=== PATIENT | female | born 1935 | race African-American/Black ===

== ENCOUNTER → 2017-05-28 | Outpatient (CLI) | payer MEDICARE, MEDICAID ==
[~2017-05-28] MED LIST: CRESTOR; LANTUS; NITROSTAT; OXYBUTYNIN; PREG50CA PO; SITA1TAB8 PO; novalog
== END | disposition home or self-care (01) ==
LOC: RAD 09:06
PROVIDERS: ATTEND Ophthalmology
DX: M17.0 Bilateral primary osteoarthritis of knee (principal)
CPT/HCPCS: 73562

== ENCOUNTER 2021-11-17 18:40 | Inpatient (IN) | payer MEDICARE, MEDICAID ==
[~2021-11-17] VITALS: Ht 162.6 cm; Wt 73.0 kg
[~2021-11-17 18:40] MED LIST changes: +ATOR20TA MT; -CRESTOR; +GABA-532 MT; +HYDR-4134 MT; +LATA7.5D OP; +MEMA10TA2 MT; +NIFE90TA60 MT; -NITROSTAT; -OXYBUTYNIN; -PREG50CA PO; -SITA1TAB8 PO; -novalog
[2021-11-17 20:00] VITALS: BP 177/80
[2021-11-17] MEDS ORDERED: DEXTROSE 50% WATER 50ML SYRINGE IV PRN (20:45)
[2021-11-17] MEDS ORDERED: ONDANSETRON HCL 4MG TABLET PO PRN (20:45)
[2021-11-17] MEDS ORDERED: LACTULOSE 20G/30ML UDC PO PRN (20:45)
[2021-11-17] MEDS: INSULIN LISPRO 100 UNITS/ML SUBCUT SCH (21:00)
[2021-11-17] MEDS: BLOOD SUGAR DIAGNOSTIC STRIP TEST SCH (21:43)
[2021-11-17] MEDS: MEMANTINE HCL 10MG TABLET PO SCH (21:43)
[2021-11-17] MEDS: ENOXAPARIN 80MG/0.8ML SYR SUBCUT SCH (22:01)
[2021-11-18 05:27] LABS: CLARITY URINE CLEAR (CLEAR); COLOR URINE YELLOW (YELLOW); KETONES URINE TRACE (NEGATIVE); LEUKOCYTE ESTERASE URINE NEGATIVE (NEGATIVE); NITRITE URINE NEGATIVE (NEGATIVE); OCCULT BLOOD URINE 2+ (NEGATIVE); PH URINE 6.5 (4.5-8.0); PROTEIN URINE TRACE (NEGATIVE); SPECIFIC GRAVITY URINE 1.015 (1.005-1.030)
[2021-11-18] MEDS: BLOOD SUGAR DIAGNOSTIC STRIP TEST SCH ×4 (06:38→21:31)
[2021-11-18 06:58] LABS: BASOPHILS % 0.5 % (0.0-2.0); EOSINOPHILS % 2.6 % (0.0-5.0); HEMATOCRIT. 41.2 % (36.0-48.0); HEMOGLOBIN. 12.8 g/dL (12.0-16.0); LYMPHOCYTES % 14.6 % (20.0-50.0); MEAN CORPUSCULAR HEMOGLOBIN 25.6 pg (28.0-32.0); MEAN CORPUSCULAR VOLUME 82.3 fL (81.0-99.0); MEAN PLATELET VOLUME 8.5 fl (7.4-10.4); MONOCYTES % 8.7 % (2.0-8.0); NEUTROPHILS % 73.6 % (40.0-76.0); PLATELET 266 x1000/uL (130-400); RED BLOOD CELL COUNT 5.01 mill/uL (4.2-5.4); RED CELL DISTRIBUTION WIDTH 17.1 % (11.6-14.6)
[2021-11-18 07:10] LABS: CHLORIDE 106 mEq/L (98-107)
[2021-11-18 08:00] VITALS: BP 203/85
[2021-11-18] MEDS: INSULIN LISPRO 100 UNITS/ML SUBCUT SCH ×4 (08:12→21:00)
[2021-11-18] MEDS: POLYETHYLENE GLYCOL 3350 (17GM) 1 DOSE PACK PO SCH (08:24)
[2021-11-18] MEDS: MEMANTINE HCL 10MG TABLET PO SCH ×2 (08:25→21:08)
[2021-11-18] MEDS: AMLODIPINE 10MG TABLET PO SCH (08:25)
[2021-11-18] MEDS: HYDROCODONE/ACETAMINOPHEN 5/325MG TABLET PO PRN (08:28)
[2021-11-18] MEDS: ENOXAPARIN 80MG/0.8ML SYR SUBCUT SCH ×2 (08:32→21:08)
[2021-11-18] MEDS ORDERED: NALOXONE HCL 0.4MG/ML VIAL IV PRN (12:45)
[2021-11-18] MEDS: ASPIRIN 81MG TABLET PO SCH (13:02)
[2021-11-18 20:00] VITALS: BP 165/69
[2021-11-18] MEDS: HYDRALAZINE HCL 25MG TABLET PO SCH (21:08)
[2021-11-18 22:20] VITALS: BP 146/63
[2021-11-19] MEDS: BLOOD SUGAR DIAGNOSTIC STRIP TEST SCH ×4 (06:08→20:48)
[2021-11-19] MEDS: INSULIN LISPRO 100 UNITS/ML SUBCUT SCH ×4 (06:32→20:52)
[2021-11-19 08:00] VITALS: BP 156/66
[2021-11-19 08:27] LABS: BASOPHILS % 0.4 % (0.0-2.0); EOSINOPHILS % 3.6 % (0.0-5.0); HEMATOCRIT. 38.3 % (36.0-48.0); HEMOGLOBIN. 12.5 g/dL (12.0-16.0); LYMPHOCYTES % 20.3 % (20.0-50.0); MEAN CORPUSCULAR HEMOGLOBIN 26.4 pg (28.0-32.0); MEAN CORPUSCULAR VOLUME 81.1 fL (81.0-99.0); MEAN PLATELET VOLUME 8.5 fl (7.4-10.4); MONOCYTES % 9.5 % (2.0-8.0); NEUTROPHILS % 66.2 % (40.0-76.0); PLATELET 283 x1000/uL (130-400); RED BLOOD CELL COUNT 4.72 mill/uL (4.2-5.4); RED CELL DISTRIBUTION WIDTH 17.4 % (11.6-14.6)
[2021-11-19 08:41] LABS: CHLORIDE 107 mEq/L (98-107)
[2021-11-19] MEDS: ASPIRIN 81MG TABLET PO SCH (09:46)
[2021-11-19] MEDS: HYDRALAZINE HCL 25MG TABLET PO SCH ×2 (09:46→20:44)
[2021-11-19] MEDS: MEMANTINE HCL 10MG TABLET PO SCH ×2 (09:46→20:44)
[2021-11-19] MEDS: POLYETHYLENE GLYCOL 3350 (17GM) 1 DOSE PACK PO SCH (09:46)
[2021-11-19] MEDS: AMLODIPINE 10MG TABLET PO SCH (09:47)
[2021-11-19] MEDS: ENOXAPARIN 80MG/0.8ML SYR SUBCUT SCH ×2 (09:48→20:44)
[2021-11-19 20:00] VITALS: BP 123/58
[2021-11-20] MEDS: BLOOD SUGAR DIAGNOSTIC STRIP TEST SCH ×4 (06:08→21:00)
[2021-11-20] MEDS: INSULIN LISPRO 100 UNITS/ML SUBCUT SCH ×4 (07:56→22:09)
[2021-11-20 08:00] VITALS: BP 160/73
[2021-11-20] MEDS: HYDRALAZINE HCL 25MG TABLET PO SCH ×2 (11:07→21:13)
[2021-11-20] MEDS: ASPIRIN 81MG TABLET PO SCH (11:07)
[2021-11-20] MEDS: POLYETHYLENE GLYCOL 3350 (17GM) 1 DOSE PACK PO SCH (11:08)
[2021-11-20] MEDS: AMLODIPINE 10MG TABLET PO SCH (11:08)
[2021-11-20] MEDS: MEMANTINE HCL 10MG TABLET PO SCH ×2 (11:08→21:12)
[2021-11-20] MEDS: ENOXAPARIN 80MG/0.8ML SYR SUBCUT SCH ×2 (11:09→21:12)
[2021-11-20] MEDS: HYDROCODONE/ACETAMINOPHEN 5/325MG TABLET PO PRN (12:10)
[2021-11-20 20:00] VITALS: BP 169/76
[2021-11-21] MEDS: BLOOD SUGAR DIAGNOSTIC STRIP TEST SCH ×4 (06:40→21:00)
[2021-11-21] MEDS: INSULIN LISPRO 100 UNITS/ML SUBCUT SCH ×4 (07:09→23:30)
[2021-11-21 08:00] VITALS: BP 178/78
[2021-11-21] MEDS: HYDROCODONE/ACETAMINOPHEN 5/325MG TABLET PO PRN ×2 (08:23→15:01)
[2021-11-21] MEDS: POLYETHYLENE GLYCOL 3350 (17GM) 1 DOSE PACK PO SCH (10:40)
[2021-11-21] MEDS: MEMANTINE HCL 10MG TABLET PO SCH ×2 (10:40→23:17)
[2021-11-21] MEDS: ASPIRIN 81MG TABLET PO SCH (10:40)
[2021-11-21] MEDS: HYDRALAZINE HCL 25MG TABLET PO SCH ×2 (10:40→23:17)
[2021-11-21] MEDS: ENOXAPARIN 80MG/0.8ML SYR SUBCUT SCH ×2 (10:41→23:19)
[2021-11-21] MEDS: AMLODIPINE 10MG TABLET PO SCH (10:41)
[2021-11-21 20:00] VITALS: BP 114/59
[2021-11-21] MEDS: ACETAMINOPHEN 325MG TABLET PO PRN (23:16)
[2021-11-22] MEDS: BLOOD SUGAR DIAGNOSTIC STRIP TEST SCH ×4 (06:56→21:16)
[2021-11-22 08:00] VITALS: BP 109/76
[2021-11-22] MEDS: INSULIN LISPRO 100 UNITS/ML SUBCUT SCH ×4 (09:00→21:43)
[2021-11-22] MEDS: MEMANTINE HCL 10MG TABLET PO SCH ×2 (09:00→21:16)
[2021-11-22] MEDS: HYDRALAZINE HCL 25MG TABLET PO SCH ×2 (09:00→21:15)
[2021-11-22] MEDS: AMLODIPINE 10MG TABLET PO SCH (09:00)
[2021-11-22] MEDS: ASPIRIN 81MG TABLET PO SCH (10:53)
[2021-11-22] MEDS: POLYETHYLENE GLYCOL 3350 (17GM) 1 DOSE PACK PO SCH (10:53)
[2021-11-22] MEDS: ENOXAPARIN 80MG/0.8ML SYR SUBCUT SCH ×2 (10:54→21:16)
[2021-11-22] MEDS: HYDROCODONE/ACETAMINOPHEN 5/325MG TABLET PO PRN (10:56)
[2021-11-22 20:00] VITALS: BP 155/53
[2021-11-23] MEDS: BLOOD SUGAR DIAGNOSTIC STRIP TEST SCH ×4 (05:21→20:39)
[2021-11-23] MEDS: HYDRALAZINE HCL 25MG TABLET PO SCH ×3 (05:21→20:38)
[2021-11-23 06:31] LABS: BASOPHILS % 0.6 % (0.0-2.0); EOSINOPHILS % 3.2 % (0.0-5.0); HEMATOCRIT. 35.8 % (36.0-48.0); HEMOGLOBIN. 11.2 g/dL (12.0-16.0); LYMPHOCYTES % 23.4 % (20.0-50.0); MEAN CORPUSCULAR HEMOGLOBIN 25.7 pg (28.0-32.0); MEAN PLATELET VOLUME 8.4 fl (7.4-10.4); MONOCYTES % 10.7 % (2.0-8.0); NEUTROPHILS % 62.1 % (40.0-76.0); PLATELET 317 x1000/uL (130-400); RED BLOOD CELL COUNT 4.37 mill/uL (4.2-5.4); RED CELL DISTRIBUTION WIDTH 18.3 % (11.6-14.6)
[2021-11-23 07:07] LABS: CHLORIDE 105 mEq/L (98-107)
[2021-11-23 08:00] VITALS: BP 162/69
[2021-11-23] MEDS: INSULIN LISPRO 100 UNITS/ML SUBCUT SCH ×4 (09:00→20:39)
[2021-11-23] MEDS: POLYETHYLENE GLYCOL 3350 (17GM) 1 DOSE PACK PO SCH (09:00)
[2021-11-23] MEDS: MEMANTINE HCL 10MG TABLET PO SCH ×2 (09:24→20:37)
[2021-11-23] MEDS: ASPIRIN 81MG TABLET PO SCH (09:24)
[2021-11-23] MEDS: ENOXAPARIN 80MG/0.8ML SYR SUBCUT SCH ×2 (09:24→20:37)
[2021-11-23] MEDS: AMLODIPINE 2.5MG TABLET PO SCH (09:25)
[2021-11-23] MEDS: ACETAMINOPHEN 325MG TABLET PO PRN (09:25)
[2021-11-23] MEDS: TRAMADOL 50MG TABLET PO PRN (13:03)
[2021-11-23 20:00] VITALS: BP 143/59
[2021-11-24] MEDS: HYDRALAZINE HCL 25MG TABLET PO SCH ×3 (05:48→22:03)
[2021-11-24] MEDS: BLOOD SUGAR DIAGNOSTIC STRIP TEST SCH ×4 (05:48→21:00)
[2021-11-24] MEDS: TRAMADOL 50MG TABLET PO PRN ×2 (06:27→09:25)
[2021-11-24 08:00] VITALS: BP 144/77
[2021-11-24] MEDS ORDERED: HYDROCODONE/ACETAMINOPHEN 5/325MG TABLET PO SCH (08:45)
[2021-11-24] MEDS: INSULIN LISPRO 100 UNITS/ML SUBCUT SCH ×4 (08:56→21:00)
[2021-11-24] MEDS: POLYETHYLENE GLYCOL 3350 (17GM) 1 DOSE PACK PO SCH (09:00)
[2021-11-24] MEDS: ENOXAPARIN 80MG/0.8ML SYR SUBCUT SCH ×2 (09:23→22:03)
[2021-11-24] MEDS: ASPIRIN 81MG TABLET PO SCH (09:23)
[2021-11-24] MEDS: MEMANTINE HCL 10MG TABLET PO SCH ×2 (09:24→22:03)
[2021-11-24] MEDS: AMLODIPINE 2.5MG TABLET PO SCH (09:24)
[2021-11-24 20:00] VITALS: BP 152/56
[2021-11-24 20:04] VITALS: BP 152/56
[2021-11-24] MEDS: HYDROCODONE/ACETAMINOPHEN 5/325MG TABLET PO PRN (22:04)
[2021-11-25 04:07] LABS: 25-HYDROXY VITAMIN D3 36 ng/mL (.)
[2021-11-25] MEDS: HYDRALAZINE HCL 25MG TABLET PO SCH ×3 (05:51→20:58)
[2021-11-25] MEDS: HYDROCODONE/ACETAMINOPHEN 5/325MG TABLET PO PRN (05:52)
[2021-11-25] MEDS: BLOOD SUGAR DIAGNOSTIC STRIP TEST SCH ×4 (06:26→20:59)
[2021-11-25 08:00] VITALS: BP 159/50
[2021-11-25] MEDS: INSULIN LISPRO 100 UNITS/ML SUBCUT SCH ×4 (08:13→21:00)
[2021-11-25] MEDS: ASPIRIN 81MG TABLET PO SCH (10:24)
[2021-11-25] MEDS: AMLODIPINE 2.5MG TABLET PO SCH (10:25)
[2021-11-25] MEDS: ERGOCALCIFEROL 50000UNITS CAPSULE PO SCH (10:25)
[2021-11-25] MEDS: MEMANTINE HCL 10MG TABLET PO SCH ×2 (10:25→20:58)
[2021-11-25] MEDS: POLYETHYLENE GLYCOL 3350 (17GM) 1 DOSE PACK PO SCH (10:25)
[2021-11-25] MEDS: ENOXAPARIN 80MG/0.8ML SYR SUBCUT SCH ×2 (10:25→20:59)
[2021-11-25 20:00] VITALS: BP 169/70
[2021-11-26 04:00] VITALS: BP 153/62
[2021-11-26] MEDS: BLOOD SUGAR DIAGNOSTIC STRIP TEST SCH ×4 (05:12→20:56)
[2021-11-26] MEDS: HYDRALAZINE HCL 25MG TABLET PO SCH ×3 (05:12→20:55)
[2021-11-26 08:00] VITALS: BP 150/65
[2021-11-26] MEDS: LACTULOSE 20G/30ML UDC PO SCH ×3 (09:00→18:08)
[2021-11-26] MEDS: INSULIN LISPRO 100 UNITS/ML SUBCUT SCH ×4 (09:00→20:50)
[2021-11-26] MEDS: MEMANTINE HCL 10MG TABLET PO SCH ×2 (09:01→20:55)
[2021-11-26] MEDS: ASPIRIN 81MG TABLET PO SCH (09:01)
[2021-11-26] MEDS: AMLODIPINE 2.5MG TABLET PO SCH (09:02)
[2021-11-26] MEDS: POLYETHYLENE GLYCOL 3350 (17GM) 1 DOSE PACK PO SCH (09:02)
[2021-11-26] MEDS: ENOXAPARIN 80MG/0.8ML SYR SUBCUT SCH ×2 (09:15→20:55)
[2021-11-26 14:30] VITALS: BP 122/65
[2021-11-26 20:00] VITALS: BP 172/62
[2021-11-27] VITALS: BP 154/80
[2021-11-27] MEDS: HYDRALAZINE HCL 25MG TABLET PO SCH ×3 (05:09→20:41)
[2021-11-27] MEDS: BLOOD SUGAR DIAGNOSTIC STRIP TEST SCH ×4 (05:17→20:48)
[2021-11-27] MEDS: HYDROCODONE/ACETAMINOPHEN 5/325MG TABLET PO PRN ×2 (06:11→23:08)
[2021-11-27 08:00] VITALS: BP 131/53
[2021-11-27] MEDS: POLYETHYLENE GLYCOL 3350 (17GM) 1 DOSE PACK PO SCH (08:49)
[2021-11-27] MEDS: ENOXAPARIN 80MG/0.8ML SYR SUBCUT SCH ×2 (08:49→20:42)
[2021-11-27] MEDS: AMLODIPINE 2.5MG TABLET PO SCH ×2 (08:50→17:40)
[2021-11-27] MEDS: MEMANTINE HCL 10MG TABLET PO SCH ×2 (08:50→20:42)
[2021-11-27] MEDS: ASPIRIN 81MG TABLET PO SCH (08:50)
[2021-11-27] MEDS: INSULIN LISPRO 100 UNITS/ML SUBCUT SCH ×4 (09:00→20:47)
[2021-11-27 11:22] LABS: BASOPHILS % 0.8 % (0.0-2.0); HEMATOCRIT. 38.8 % (36.0-48.0); HEMOGLOBIN. 12.2 g/dL (12.0-16.0); LYMPHOCYTES % 13.7 % (20.0-50.0); MEAN CORPUSCULAR HEMOGLOBIN 25.6 pg (28.0-32.0); MEAN CORPUSCULAR VOLUME 81.7 fL (81.0-99.0); MEAN PLATELET VOLUME 7.7 fl (7.4-10.4); NEUTROPHILS % 73.5 % (40.0-76.0); PLATELET 397 x1000/uL (130-400); RED BLOOD CELL COUNT 4.75 mill/uL (4.2-5.4); RED CELL DISTRIBUTION WIDTH 17.9 % (11.6-14.6)
[2021-11-27 11:31] LABS: CHLORIDE 106 mEq/L (98-107)
[2021-11-27] MEDS ORDERED: POTASSIUM CHLORIDE 20MEQ/PACKET PO SCH (13:30)
[2021-11-27 20:00] VITALS: BP 168/63
[2021-11-27 22:00] VITALS: BP 158/70
[2021-11-28] MEDS: HYDRALAZINE HCL 25MG TABLET PO SCH ×3 (05:17→22:05)
[2021-11-28] MEDS: BLOOD SUGAR DIAGNOSTIC STRIP TEST SCH ×4 (05:21→20:43)
[2021-11-28] MEDS: INSULIN LISPRO 100 UNITS/ML SUBCUT SCH ×4 (05:22→20:43)
[2021-11-28] MEDS: HYDROCODONE/ACETAMINOPHEN 5/325MG TABLET PO PRN ×2 (07:01→15:03)
[2021-11-28 08:00] VITALS: BP 151/69
[2021-11-28] MEDS: POLYETHYLENE GLYCOL 3350 (17GM) 1 DOSE PACK PO SCH (08:56)
[2021-11-28] MEDS: ASPIRIN 81MG TABLET PO SCH (08:57)
[2021-11-28] MEDS: ENOXAPARIN 80MG/0.8ML SYR SUBCUT SCH ×2 (08:57→20:38)
[2021-11-28] MEDS: AMLODIPINE 2.5MG TABLET PO SCH ×2 (08:57→16:46)
[2021-11-28] MEDS: MEMANTINE HCL 10MG TABLET PO SCH ×2 (08:57→20:38)
[2021-11-28] MEDS ORDERED: NALOXONE HCL 0.4MG/ML VIAL IV PRN (16:00)
[2021-11-28 19:59] VITALS: BP 143/58
[2021-11-29] MEDS: HYDRALAZINE HCL 25MG TABLET PO SCH ×3 (05:13→20:57)
[2021-11-29] MEDS: BLOOD SUGAR DIAGNOSTIC STRIP TEST SCH ×4 (06:03→21:18)
[2021-11-29] MEDS: INSULIN LISPRO 100 UNITS/ML SUBCUT SCH ×4 (06:14→21:17)
[2021-11-29 07:29] LABS: BASOPHILS % 0.8 % (0.0-2.0); EOSINOPHILS % 3.9 % (0.0-5.0); HEMATOCRIT. 37.8 % (36.0-48.0); HEMOGLOBIN. 11.7 g/dL (12.0-16.0); LYMPHOCYTES % 19.7 % (20.0-50.0); MEAN CORPUSCULAR HEMOGLOBIN 25.6 pg (28.0-32.0); MEAN CORPUSCULAR VOLUME 82.9 fL (81.0-99.0); MEAN PLATELET VOLUME 8.1 fl (7.4-10.4); MONOCYTES % 7.9 % (2.0-8.0); NEUTROPHILS % 67.7 % (40.0-76.0); PLATELET 332 x1000/uL (130-400); RED BLOOD CELL COUNT 4.56 mill/uL (4.2-5.4); RED CELL DISTRIBUTION WIDTH 17.7 % (11.6-14.6)
[2021-11-29 07:34] LABS: CHLORIDE 109 mEq/L (98-107)
[2021-11-29 08:00] VITALS: BP 158/75
[2021-11-29] MEDS: ASPIRIN 81MG TABLET PO SCH (08:26)
[2021-11-29] MEDS: MEMANTINE HCL 10MG TABLET PO SCH ×2 (08:26→20:58)
[2021-11-29] MEDS: POLYETHYLENE GLYCOL 3350 (17GM) 1 DOSE PACK PO SCH (08:26)
[2021-11-29] MEDS: HYDROCODONE/ACETAMINOPHEN 5/325MG TABLET PO PRN (08:27)
[2021-11-29] MEDS: ENOXAPARIN 80MG/0.8ML SYR SUBCUT SCH ×2 (08:28→20:58)
[2021-11-29] MEDS: AMLODIPINE 2.5MG TABLET PO SCH ×2 (08:29→18:03)
[2021-11-29] MEDS ORDERED: POTASSIUM CHLORIDE 20MEQ TABLET SR PO SCH (08:45)
[2021-11-29] MEDS ORDERED: NALOXONE HCL 0.4MG/ML VIAL IV PRN (19:45)
[2021-11-29 20:00] VITALS: BP 147/57
[2021-11-30] MEDS: HYDRALAZINE HCL 25MG TABLET PO SCH ×3 (05:49→21:06)
[2021-11-30 06:40] LABS: BASOPHILS % 0.7 % (0.0-2.0); EOSINOPHILS % 2.7 % (0.0-5.0); HEMATOCRIT. 39.8 % (36.0-48.0); HEMOGLOBIN. 12.6 g/dL (12.0-16.0); LYMPHOCYTES % 22.5 % (20.0-50.0); MEAN CORPUSCULAR HEMOGLOBIN 25.8 pg (28.0-32.0); MEAN CORPUSCULAR VOLUME 81.4 fL (81.0-99.0); MEAN PLATELET VOLUME 8.1 fl (7.4-10.4); MONOCYTES % 9.1 % (2.0-8.0); PLATELET 354 x1000/uL (130-400); RED BLOOD CELL COUNT 4.89 mill/uL (4.2-5.4); RED CELL DISTRIBUTION WIDTH 18.3 % (11.6-14.6)
[2021-11-30 07:03] LABS: CHLORIDE 109 mEq/L (98-107)
[2021-11-30] MEDS: BLOOD SUGAR DIAGNOSTIC STRIP TEST SCH ×4 (07:03→21:06)
[2021-11-30] MEDS: HYDROCODONE/ACETAMINOPHEN 5/325MG TABLET PO PRN ×2 (07:03→13:05)
[2021-11-30] MEDS: INSULIN LISPRO 100 UNITS/ML SUBCUT SCH ×4 (07:04→21:15)
[2021-11-30] MEDS: POLYETHYLENE GLYCOL 3350 (17GM) 1 DOSE PACK PO SCH (09:32)
[2021-11-30] MEDS: ASPIRIN 81MG TABLET PO SCH (09:32)
[2021-11-30] MEDS: MEMANTINE HCL 10MG TABLET PO SCH ×2 (09:33→21:06)
[2021-11-30] MEDS: AMLODIPINE 2.5MG TABLET PO SCH ×2 (09:34→17:27)
[2021-11-30] MEDS: ENOXAPARIN 80MG/0.8ML SYR SUBCUT SCH ×2 (09:36→21:07)
[2021-11-30 20:00] VITALS: BP 139/46
[2021-12-01] MEDS: SODIUM HYPOCHLORITE 0.125% 473ML SOLUTION TOP PRN (02:12)
[2021-12-01] MEDS: HYDRALAZINE HCL 25MG TABLET PO SCH ×3 (05:53→21:10)
[2021-12-01] MEDS: HYDROCODONE/ACETAMINOPHEN 5/325MG TABLET PO PRN ×2 (05:54→13:32)
[2021-12-01] MEDS: BLOOD SUGAR DIAGNOSTIC STRIP TEST SCH ×4 (05:58→21:10)
[2021-12-01] MEDS: INSULIN LISPRO 100 UNITS/ML SUBCUT SCH ×4 (05:59→21:00)
[2021-12-01 08:00] VITALS: BP 140/52
[2021-12-01] MEDS: AMLODIPINE 2.5MG TABLET PO SCH ×2 (09:42→17:12)
[2021-12-01] MEDS: MEMANTINE HCL 10MG TABLET PO SCH ×2 (09:42→21:10)
[2021-12-01] MEDS: ASPIRIN 81MG TABLET PO SCH (09:42)
[2021-12-01] MEDS: POLYETHYLENE GLYCOL 3350 (17GM) 1 DOSE PACK PO SCH (09:42)
[2021-12-01] MEDS: ENOXAPARIN 80MG/0.8ML SYR SUBCUT SCH ×2 (09:43→21:11)
[2021-12-01 20:00] VITALS: BP 122/72
[2021-12-02] MEDS: BLOOD SUGAR DIAGNOSTIC STRIP TEST SCH ×2 (05:38→11:18)
[2021-12-02] MEDS: HYDRALAZINE HCL 25MG TABLET PO SCH ×3 (05:39→20:42)
[2021-12-02] MEDS: INSULIN LISPRO 100 UNITS/ML SUBCUT SCH (05:39)
[2021-12-02] MEDS: HYDROCODONE/ACETAMINOPHEN 5/325MG TABLET PO PRN ×2 (05:40→13:57)
[2021-12-02 08:00] VITALS: BP 142/58
[2021-12-02] MEDS: ASPIRIN 81MG TABLET PO SCH (08:32)
[2021-12-02] MEDS: APIXABAN 5 MG TABLET PO SCH ×2 (08:32→18:13)
[2021-12-02] MEDS: ERGOCALCIFEROL 50000UNITS CAPSULE PO SCH (08:33)
[2021-12-02] MEDS: AMLODIPINE 2.5MG TABLET PO SCH ×2 (08:33→18:13)
[2021-12-02] MEDS: MEMANTINE HCL 10MG TABLET PO SCH ×2 (08:33→20:42)
[2021-12-02] MEDS: POLYETHYLENE GLYCOL 3350 (17GM) 1 DOSE PACK PO SCH (08:41)
[2021-12-02 09:10] LABS: BASOPHILS % 0.7 % (0.0-2.0); EOSINOPHILS % 3.1 % (0.0-5.0); HEMOGLOBIN. 11.3 g/dL (12.0-16.0); LYMPHOCYTES % 26.8 % (20.0-50.0); MEAN CORPUSCULAR HEMOGLOBIN 25.7 pg (28.0-32.0); MEAN CORPUSCULAR VOLUME 82.2 fL (81.0-99.0); MEAN PLATELET VOLUME 8.2 fl (7.4-10.4); MONOCYTES % 7.7 % (2.0-8.0); NEUTROPHILS % 61.7 % (40.0-76.0); PLATELET 343 x1000/uL (130-400); RED BLOOD CELL COUNT 4.37 mill/uL (4.2-5.4); RED CELL DISTRIBUTION WIDTH 17.8 % (11.6-14.6)
[2021-12-02 09:20] LABS: CHLORIDE 111 mEq/L (98-107)
[2021-12-02 20:00] VITALS: BP 164/60
[2021-12-02 22:00] VITALS: BP 157/70
[2021-12-03] MEDS: HYDRALAZINE HCL 25MG TABLET PO SCH ×3 (05:53→22:33)
[2021-12-03] MEDS: HYDROCODONE/ACETAMINOPHEN 5/325MG TABLET PO PRN ×2 (05:54→22:33)
[2021-12-03] MEDS: SODIUM HYPOCHLORITE 0.125% 473ML SOLUTION TOP PRN (05:57)
[2021-12-03 06:49] VITALS: BP 152/50
[2021-12-03 08:00] VITALS: BP 145/54
[2021-12-03] MEDS: POLYETHYLENE GLYCOL 3350 (17GM) 1 DOSE PACK PO SCH (08:51)
[2021-12-03] MEDS: ASPIRIN 81MG TABLET PO SCH (08:51)
[2021-12-03] MEDS: MEMANTINE HCL 10MG TABLET PO SCH ×2 (08:51→22:32)
[2021-12-03] MEDS: APIXABAN 5 MG TABLET PO SCH ×2 (08:51→16:57)
[2021-12-03] MEDS: AMLODIPINE 2.5MG TABLET PO SCH ×2 (08:52→16:57)
[2021-12-03 20:00] VITALS: BP 154/52
[2021-12-04] MEDS: HYDRALAZINE HCL 25MG TABLET PO SCH ×3 (06:38→20:37)
[2021-12-04] MEDS: SODIUM HYPOCHLORITE 0.125% 473ML SOLUTION TOP PRN (06:38)
[2021-12-04] MEDS: HYDROCODONE/ACETAMINOPHEN 5/325MG TABLET PO PRN ×2 (06:39→13:14)
[2021-12-04 07:47] VITALS: BP 130/49
[2021-12-04] MEDS: ASPIRIN 81MG TABLET PO SCH (09:32)
[2021-12-04] MEDS: APIXABAN 5 MG TABLET PO SCH ×2 (09:32→16:37)
[2021-12-04] MEDS: POLYETHYLENE GLYCOL 3350 (17GM) 1 DOSE PACK PO SCH (09:32)
[2021-12-04] MEDS: AMLODIPINE 2.5MG TABLET PO SCH ×2 (09:33→16:38)
[2021-12-04] MEDS: MEMANTINE HCL 10MG TABLET PO SCH ×2 (09:33→20:37)
[2021-12-04] MEDS ORDERED: LIDOCAINE HCL/EPINEPHRINE 1%-EPI 1:100,000 20 ML VIAL INFIL NR (11:30)
[2021-12-04] MEDS ORDERED: LIDOCAINE HCL 2% JELLY 5ML TOP NR (11:30)
[2021-12-04] MEDS ORDERED: LIDOCAINE HCL/EPINEPHRINE 1%-EPI 1:100,000 10 ML VIAL INFIL NR (12:00)
[2021-12-04 20:00] VITALS: BP 115/55
[2021-12-05] MEDS: HYDRALAZINE HCL 25MG TABLET PO SCH (06:25)
[2021-12-05 08:00] VITALS: BP 143/89
[2021-12-05] MEDS: POLYETHYLENE GLYCOL 3350 (17GM) 1 DOSE PACK PO SCH (09:00)
[2021-12-05] MEDS: APIXABAN 5 MG TABLET PO SCH (10:42)
[2021-12-05] MEDS: ASPIRIN 81MG TABLET PO SCH (10:42)
[2021-12-05] MEDS: MEMANTINE HCL 10MG TABLET PO SCH (10:42)
[2021-12-05] MEDS: AMLODIPINE 2.5MG TABLET PO SCH (10:43)
[2021-12-05] MEDS: ACETAMINOPHEN 325MG TABLET PO PRN (10:44)
[2021-12-05 10:57] VITALS: BP 143/89
== END 2021-12-05 11:55 | DRG 463 ==
PROVIDERS: ADMIT Physical Medicine & Rehabilitation Spinal Cord Injury Medicine; ATTEND Internal Medicine Pulmonary Disease
PROC: 0JB70ZZ Excision of Back Subcutaneous Tissue and Fascia, Open Approach (ICD-10-PCS; principal; 2021-12-04)
DX: S32.502D Unspecified fracture of left pubis, subsequent encounter for fracture with routine healing (principal); L89.153 Pressure ulcer of sacral region, stage 3; G93.41 Metabolic encephalopathy; I26.99 Other pulmonary embolism without acute cor pulmonale; I21.4 Non-ST elevation (NSTEMI) myocardial infarction; E43 Unspecified severe protein-calorie malnutrition; S32.501A Unspecified fracture of right pubis, initial encounter for closed fracture; S32.10XA Unspecified fracture of sacrum, initial encounter for closed fracture; N17.9 Acute kidney failure, unspecified; I50.9 Heart failure, unspecified; I11.0 Hypertensive heart disease with heart failure; F03.90 Unspecified dementia, unspecified severity, without behavioral disturbance, psychotic disturbance, mood disturbance, and anxiety; E11.9 Type 2 diabetes mellitus without complications; R53.81 Other malaise; I25.10 Atherosclerotic heart disease of native coronary artery without angina pectoris; J44.9 Chronic obstructive pulmonary disease, unspecified; W18.39XA Other fall on same level, initial encounter; L89.619 Pressure ulcer of right heel, unspecified stage; K59.00 Constipation, unspecified; E87.6 Hypokalemia; E55.9 Vitamin D deficiency, unspecified; R15.9 Full incontinence of feces; Y93.89 Activity, other specified; Z86.73 Personal history of transient ischemic attack (TIA), and cerebral infarction without residual deficits; Z87.891 Personal history of nicotine dependence; Z95.5 Presence of coronary angioplasty implant and graft; Z86.711 Personal history of pulmonary embolism; Z82.49 Family history of ischemic heart disease and other diseases of the circulatory system; Z79.899 Other long term (current) drug therapy; I25.2 Old myocardial infarction; Y92.89 Other specified places as the place of occurrence of the external cause; Y99.8 Other external cause status; Z68.27 Body mass index [BMI] 27.0-27.9, adult; Z79.82 Long term (current) use of aspirin; Z79.01 Long term (current) use of anticoagulants
CPT/HCPCS: 36415; 80048; 80053; 80061; 81003; 82040; 82306; 82962; 83735; 84134; 85025; 92508; 92523; 92610; 93306; 93970; 97110; 97150; 97162; 97166; 97530; 97535; A4565; A6261; J1650; J1815; J3490; Q0162; A5200